=== PATIENT | female | born 1975 | race Caucasian/White ===

== ENCOUNTER 2023-02-06 08:33 | Outpatient (REF) | payer MEDICARE, SELFPAY ==
[2023-02-11 04:53] LABS: Nortriptyline 24 mcg/L (50-150)
== END 2023-02-06 08:34 | disposition home or self-care (01) ==
LOC: HO.LAB 08:33
PROVIDERS: PCP Internal Medicine; Visit Provider Clinical Nurse Specialist Psychiatric/Mental Health, Adult
DX: Z79.899 Other long term (current) drug therapy (principal)
CPT/HCPCS: 36415; 80335

== ENCOUNTER 2023-02-13 09:11 | Outpatient (REF) | payer MEDICARE, SELFPAY ==
[2023-02-18 17:49] LABS: Nortriptyline 28 mcg/L (50-150)
== END 2023-02-13 09:12 | disposition home or self-care (01) ==
LOC: HO.LABR 09:11
PROVIDERS: Visit Provider Clinical Nurse Specialist Psychiatric/Mental Health, Adult
DX: Z79.899 Other long term (current) drug therapy (principal)
CPT/HCPCS: 36415; 80335

== ENCOUNTER 2023-02-20 09:36 | Outpatient (REF) | payer MEDICARE, SELFPAY ==
[2023-02-23 15:28] LABS: Nortriptyline 37 mcg/L (50-150)
== END 2023-02-20 09:37 | disposition home or self-care (01) ==
LOC: HO.LABR 09:36
PROVIDERS: Visit Provider Clinical Nurse Specialist Psychiatric/Mental Health, Adult
DX: Z79.899 Other long term (current) drug therapy (principal)
CPT/HCPCS: 36415; 80335

== ENCOUNTER 2023-02-27 08:06 | Outpatient (REF) | payer MEDICARE, SELFPAY ==
[2023-03-02 17:24] LABS: Nortriptyline 37 mcg/L (50-150)
== END 2023-02-27 08:07 | disposition home or self-care (01) ==
LOC: HO.LAB 08:06
PROVIDERS: Visit Provider Clinical Nurse Specialist Psychiatric/Mental Health, Adult
DX: Z79.899 Other long term (current) drug therapy (principal)
CPT/HCPCS: 36415; 80335

== ENCOUNTER → 2023-06-01 09:00 | Outpatient (BNV) | payer MEDICARE, SELFPAY | PROVIDERS: PCP Internal Medicine; Visit Provider Psychiatry & Neurology Psychiatry | DX: F33.2 Major depressive disorder, recurrent severe without psychotic features (principal) | CPT/HCPCS: 90867; 90868 ==

== ENCOUNTER 2023-06-26 10:28 | Outpatient (REF) | payer MEDICARE, SELFPAY ==
[2023-06-26 12:14] LABS: Folate > 20.0 ng/mL (> or = 4.0); Vitamin B12 606 pg/mL (200-900)
[2023-06-29 18:03] LABS: Clomipramine 359 mcg/L (50-250); Clomipramine + Desmethylclom 575 mcg/L (200-600); Desmethylclomipramine 216 mcg/L (150-350)
== END 2023-06-26 10:29 | disposition home or self-care (01) ==
LOC: HO.LAB 10:28
PROVIDERS: PCP Student in an Organized Health Care Education/Training Program; Visit Provider Psychiatry & Neurology Psychiatry
DX: F33.2 Major depressive disorder, recurrent severe without psychotic features (principal); F42.9 Obsessive-compulsive disorder, unspecified; Z79.899 Other long term (current) drug therapy
CPT/HCPCS: 36415; 80335; 82607; 82746; 84443

== ENCOUNTER → 2023-07-24 11:25 | Outpatient (BNVA) | payer MEDICARE, SELFPAY | PROVIDERS: PCP Student in an Organized Health Care Education/Training Program; Visit Provider Psychiatry & Neurology Psychiatry ==

== ENCOUNTER 2023-07-26 09:00 | Outpatient (RCR) | payer MEDICARE, SELFPAY ==
--- NOTE | 2023-05-22 13:36 | W.PM.TMSCONS ---
History of Present Illness General Data Date of Service: 05/22/23 Reason for consult: tms eval referred by nurse practitioner and therapist Jesica Beltre [facility] Requesting provider: Lupe Atkinson History of Present Illness The patient is a 47-year-old female seen in evaluation accompanied by her mother. 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 She had a good response to TMS in 2017. The patient had been seeing Taryn Sanchez nurse practitioner for a number of years who has been in the process moving and has started seeing a new practitioner. 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 She has had intrusive thoughts that she would be better off denies that she would act on these thoughts but states this is close to the were she has felt. She has marked anxiety and intrusive obsessional ruminations about other people with intrusive negative thoughts that she feels guilty about and has had classic OCD intrusive unwanted sexual thoughts around others that causes guilt and despair. The patient recently had been at the [facility] at [facility] but was only able to stay for couple of days some of this appears to relate to her 's reaction and her own reaction. She again has felt increasing despair. Her current PHQ-9 is 26 she has been hoping for TMS treatment which she states had helped her significantly previously The patient has had a number of medication trials over the years. Most recently she has been on Anafranil 150 mg daily with a plan to increase and alprazolam 0.5 mg daily p.r.n. the patient had OCD symptoms starting in middle school Over the past year with worsening depression the patient has multiple medication trials these have included venlafaxine up to 150 mg which was discontinued secondary to lack of effect. She had had a prior response to Latuda which was somewhat helpful but eventually showed a lack of acts efficacy and she did take up to 80 mg day. Over the past year in addition to Effexor she had had a trial of escitalopram up to 20 mg for couple of months discontinued because of lack of efficacy. Vraylar had been ended at 1.5 mg gradually increased 3 mg again for a couple of months discontinued due to lack of efficacy and nortriptyline had been added for augmentation to 50 mg which was discontinued due to lack of efficacy and Rexulti had most recently been tried for augmentation to 1 mg which was discontinued couple of months. The patient has had a gradual downward drift over time having been able to work in the past on a much more regular basis Past Psychiatric History/Medication Trials: Patient has had past trials at the [facility] most recently at [place] that had a hard time scientology driving there. She had had intrusive symptoms that she had run someone over intrusive in her head and became more more difficult to drive she did have a trial of ECT in 2017 which was discontinued prematurely as she had had awareness during her last ECT treatment which was she believes proximally 5. And was unable to continue. 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 daily p.r.n. Allergies Allergies Allergy/AdvReac Type Severity Reaction Status Date / Time amoxicillin [AMOXICILLIN] AdvReac Intermediate HIVES Unverified 05/21/20 15:54 Mental Status Exam Mental Status Exam Patient Appearance: Well Grooomed Patient Orientation: Person, Place, Time and Situation Level of Consciousness: Awake and Appropriate Patient Behavior: Appropriate Mood Description: Depressed, Anxious, Blunted and Apprehensive Affect Description: Appropriate, Constricted and Depressed Patient Cognition Impaired: No Ability to Follow Directions: Good Speech Pattern: Clear Memory Description: Intact Hallucinations: None Delusions: Not Present Thought Process: Intact and Goal Oriented Thought Content: positive for Goal Oriented, positive for Preoccupation, positive for Suicidal Ideation and negative for Homicidal Ideation Depressive Symptoms: Increased Anxiety, Increased Irritability, Sleeping More Than Usual, Feelings of Worthlessness, Hopelessness, Feelings of Guilt, Increased Fatigue, Thoughts of /Suicide, Loss of Energy and Difficulty Concentrating Judgement: Good Judgement and Insight: Difficulty understanding her OCD thoughts are just thoughts in not wishes or desires she has asking for help she does states she can maintain her safety Assessment & Plan Assessment & Plan (1) Major depressive disorder, recurrent severe without psychotic features: Status: Acute Code(s): F33.2 - Major depressive disorder, recurrent severe without psychotic features (2) OCD (obsessive compulsive disorder): Status: Acute Code(s): F42.9 - Obsessive-compulsive disorder, unspecified Plan Discussed with patient risks benefits and alternatives. Patient has no contraindication to TMS has tolerated previously. No pacemaker cochlear implant no history of surgery above the head or neck no metallic implants no history of brain surgery no history of seizures Patient would benefit from a TMS trial she states she does not need inpatient treatment at this time was given education regarding depression and OCD discussed Brain Lock for OCD denies active suicidal intent states she can maintain her safety as an outpatient Total time managing care of this patient today _70___ minutes. Including review of records Patient educated on: diagnosis, TMS and therapeutic strategies Informed Consent: understands
--- NOTE | 2023-06-01 20:48 | HO.TMSDAILY2 ---
TMS Daily Progress Note Daily TMS Progress Note Date of Service: 05/31/23 Week #: 1 Treatment #(10-03): 1 PHQ-9 Pre-Treatment (09-30): 27 PHQ-9 Most Recent (09-30): 26 Reviewed: TMS Tech Note Reviewed Verification: I have reviewed the TMS Wellness Health Coach Note and agree with the contents. The patient remains a candidate to continue TMS treatment per protocol. Assessment and Plan (1) OCD (obsessive compulsive disorder): Status: Acute (2) Major depressive disorder, recurrent severe without psychotic features: Status: Acute Plan pt tolerated initial mapping without difficulty has significant depressive and anxiety sx denies active si Time Spent With Patient Time: Total time managing care of this patient today ____ minutes.
--- NOTE | 2023-06-01 20:54 | P.PNPS_ITS ---
TMS Daily Progress Note Daily TMS Progress Note Date of Service: 06/01/23 Week #: 1 Treatment #(10-03): 2 PHQ-9 Pre-Treatment (09-30): 27 PHQ-9 Most Recent (09-30): 26 Reviewed: TMS Tech Note Reviewed Verification: I have reviewed the TMS Substation Operator Conversion Note and agree with the contents. The patient remains a candidate to continue TMS treatment per protocol. Assessment and Plan (1) Major depressive disorder, recurrent severe without psychotic features: Status: Acute (2) OCD (obsessive compulsive disorder): Status: Acute Plan continue plan of care Time Spent With Patient Time: Total time managing care of this patient today ____ minutes.
--- NOTE | 2023-06-03 00:06 | P.PNPS_ITS ---
TMS Daily Progress Note Daily TMS Progress Note Date of Service: 06/02/23 Week #: 1 Treatment #(10-03): 3 PHQ-9 Pre-Treatment (09-30): 27 PHQ-9 Most Recent (09-30): 26 Reviewed: TMS Tech Note Reviewed Verification: I have reviewed the TMS Supervisor Billposting Note and agree with the contents. The patient remains a candidate to continue TMS treatment per protocol. Assessment and Plan (1) OCD (obsessive compulsive disorder): Status: Acute (2) Major depressive disorder, recurrent severe without psychotic features: Status: Acute Plan Some complaints of pain using Motrin continue plan of care Time Spent With Patient Time: Total time managing care of this patient today ____ minutes.
--- NOTE | 2023-06-14 22:06 | HO.TMSDAILY2 ---
TMS Daily Progress Note Daily TMS Progress Note Date of Service: 06/13/23 Week #: 2 Treatment #(10-03): 9 PHQ-9 Pre-Treatment (09-30): 27 PHQ-9 Most Recent (09-30): 26 Reviewed: TMS Tech Note Reviewed Verification: I have reviewed the TMS Diving Board Assembler Note and agree with the contents. The patient remains a candidate to continue TMS treatment per protocol. Assessment and Plan (1) OCD (obsessive compulsive disorder): Status: Acute (2) Major depressive disorder, recurrent severe without psychotic features: Status: Acute Plan cont tx plan Time Spent With Patient Time: Total time managing care of this patient today ____ minutes.
--- NOTE | 2023-06-14 22:08 | HO.TMSDAILY2 ---
TMS Daily Progress Note Daily TMS Progress Note Date of Service: 06/14/23 Week #: 2 Treatment #(10-03): 10 PHQ-9 Pre-Treatment (09-30): 27 PHQ-9 Most Recent (09-30): 26 Reviewed: TMS Tech Note Reviewed Verification: I have reviewed the TMS Supervisor Lending Activities Note and agree with the contents. The patient remains a candidate to continue TMS treatment per protocol. Assessment and Plan (1) Major depressive disorder, recurrent severe without psychotic features: Status: Acute (2) OCD (obsessive compulsive disorder): Status: Acute Plan tolerating tx changes noted Time Spent With Patient Time: Total time managing care of this patient today ____ minutes.
--- NOTE | 2023-06-15 21:56 | HO.TMSDAILY2 ---
TMS Daily Progress Note Daily TMS Progress Note Date of Service: 06/15/23 Week #: 3 Treatment #(10-03): 11 PHQ-9 Pre-Treatment (09-30): 27 PHQ-9 Most Recent (09-30): 26 Reviewed: TMS Tech Note Reviewed Verification: I have reviewed the TMS Hard Candy Batch Mixer Note and agree with the contents. The patient remains a candidate to continue TMS treatment per protocol. Assessment and Plan (1) OCD (obsessive compulsive disorder): Status: Acute (2) Major depressive disorder, recurrent severe without psychotic features: Status: Acute Plan tolerating tx improved fx Time Spent With Patient Time: Total time managing care of this patient today ____ minutes.
--- NOTE | 2023-06-16 23:54 | HO.TMSDAILY2 ---
TMS Daily Progress Note Daily TMS Progress Note Date of Service: 06/18/23 Week #: 3 Treatment #(10-03): 12 PHQ-9 Pre-Treatment (09-30): 27 PHQ-9 Most Recent (09-30): 26 Reviewed: TMS Tech Note Reviewed Verification: I have reviewed the TMS Sales And Catering Coordinator Note and agree with the contents. The patient remains a candidate to continue TMS treatment per protocol. Assessment and Plan (1) OCD (obsessive compulsive disorder): Status: Acute (2) Major depressive disorder, recurrent severe without psychotic features: Status: Acute Plan Patient reports improved functioning in stress tolerance Time Spent With Patient Time: Total time managing care of this patient today ____ minutes.
--- NOTE | 2023-06-19 21:42 | HO.TMSDAILY2 ---
TMS Daily Progress Note Daily TMS Progress Note Date of Service: 06/19/23 Week #: 3 Treatment #(10-03): 13 PHQ-9 Pre-Treatment (09-30): 27 PHQ-9 Most Recent (09-30): 26 Reviewed: TMS Tech Note Reviewed Verification: I have reviewed the TMS Data Entry Coordinator Note and agree with the contents. The patient remains a candidate to continue TMS treatment per protocol. Assessment and Plan (1) OCD (obsessive compulsive disorder): Status: Acute (2) Major depressive disorder, recurrent severe without psychotic features: Status: Acute Plan cont plan of care Time Spent With Patient Time: Total time managing care of this patient today ____ minutes.
--- NOTE | 2023-06-22 09:43 | HO.TMSDAILY2 ---
TMS Daily Progress Note Daily TMS Progress Note Date of Service: 06/19/23 Week #: 3 Treatment #(10-03): 14 PHQ-9 Pre-Treatment (09-30): 27 PHQ-9 Most Recent (09-30): 26 Reviewed: TMS Tech Note Reviewed Verification: I have reviewed the TMS Dynamic Etching Processor Note and agree with the contents. The patient remains a candidate to continue TMS treatment per protocol. Assessment and Plan (1) OCD (obsessive compulsive disorder): Status: Acute (2) Major depressive disorder, recurrent severe without psychotic features: Status: Acute Plan CONTINUE TX PLAN Time Spent With Patient Time: Total time managing care of this patient today ____ minutes.
--- NOTE | 2023-06-22 09:45 | HO.TMSDAILY2 ---
TMS Daily Progress Note Daily TMS Progress Note Date of Service: 06/21/23 Week #: 3 Treatment #(10-03): 15 PHQ-9 Pre-Treatment (09-30): 27 PHQ-9 Most Recent (09-30): 26 Reviewed: TMS Tech Note Reviewed Verification: I have reviewed the TMS Director Of Business Continuity Note and agree with the contents. The patient remains a candidate to continue TMS treatment per protocol. Assessment and Plan (1) OCD (obsessive compulsive disorder): Status: Acute (2) Major depressive disorder, recurrent severe without psychotic features: Status: Acute Plan CONTINUE PLAN OF CARE Time Spent With Patient Time: Total time managing care of this patient today ____ minutes.
--- NOTE | 2023-06-22 09:54 | P.PNPS_ITS ---
TMS Daily Progress Note Daily TMS Progress Note Date of Service: 06/22/23 Week #: 4 Treatment #(10-03): 16 PHQ-9 Pre-Treatment (09-30): 27 PHQ-9 Most Recent (09-30): 26 Reviewed: TMS Tech Note Reviewed Verification: I have reviewed the TMS Mailing Manager Note and agree with the contents. The patient remains a candidate to continue TMS treatment per protocol. Assessment and Plan (1) OCD (obsessive compulsive disorder): Status: Acute (2) Major depressive disorder, recurrent severe without psychotic features: Status: Acute Plan TOLERATING TX CLEARLY IMPROVED Time Spent With Patient Time: Total time managing care of this patient today ____ minutes.
--- NOTE | 2023-07-03 15:54 | P.PNPS_ITS ---
TMS Daily Progress Note Daily TMS Progress Note Date of Service: 07/03/23 Week #: 4 Treatment #(10-03): 17 PHQ-9 Pre-Treatment (09-30): 27 PHQ-9 Most Recent (09-30): 26 Reviewed: TMS Tech Note Reviewed Verification: I have reviewed the TMS Ground Source Heat Pump Technician Note and agree with the contents. The patient remains a candidate to continue TMS treatment per protocol. Assessment and Plan (1) Major depressive disorder, recurrent severe without psychotic features: Status: Acute (2) OCD (obsessive compulsive disorder): Status: Acute Plan pt generally noting improvement Time Spent With Patient Time: Total time managing care of this patient today ____ minutes.
--- NOTE | 2023-07-03 16:03 | HO.TMSDAILY2 ---
TMS Daily Progress Note Daily TMS Progress Note Date of Service: 06/26/23 Week #: 4 Treatment #(10-03): 18 PHQ-9 Pre-Treatment (09-30): 27 PHQ-9 Most Recent (09-30): 26 Reviewed: TMS Tech Note Reviewed Verification: I have reviewed the TMS Order Puller Note and agree with the contents. The patient remains a candidate to continue TMS treatment per protocol. Assessment and Plan (1) OCD (obsessive compulsive disorder): Status: Acute (2) Major depressive disorder, recurrent severe without psychotic features: Status: Acute Plan ?pt fx improved still with intrusive ocd Time Spent With Patient Time: Total time managing care of this patient today ____ minutes.
--- NOTE | 2023-07-03 16:09 | P.PNPS_ITS ---
TMS Daily Progress Note Daily TMS Progress Note Date of Service: 06/27/23 Week #: 4 Treatment #(10-03): 19 PHQ-9 Pre-Treatment (09-30): 27 PHQ-9 Most Recent (09-30): 26 Reviewed: TMS Tech Note Reviewed Verification: I have reviewed the TMS Draw Bench Operator Helper Note and agree with the contents. The patient remains a candidate to continue TMS treatment per protocol. Assessment and Plan (1) OCD (obsessive compulsive disorder): Status: Acute (2) Major depressive disorder, recurrent severe without psychotic features: Status: Acute Plan cont plan of care Time Spent With Patient Time: Total time managing care of this patient today ____ minutes.
--- NOTE | 2023-07-03 16:16 | HO.TMSDAILY2 ---
TMS Daily Progress Note Daily TMS Progress Note Date of Service: 06/28/23 Week #: 4 Treatment #(10-03): 20 PHQ-9 Pre-Treatment (09-30): 27 PHQ-9 Most Recent (09-30): 26 Reviewed: TMS Tech Note Reviewed Verification: I have reviewed the TMS Patient Admitting Representative Note and agree with the contents. The patient remains a candidate to continue TMS treatment per protocol. Assessment and Plan (1) OCD (obsessive compulsive disorder): Status: Acute (2) Major depressive disorder, recurrent severe without psychotic features: Status: Acute Plan discussed with pt progress her ocd tx support groups and medication and its relation to tms pt generally feeling and fx better Time Spent With Patient Time: Total time managing care of this patient today ____ minutes.
--- NOTE | 2023-07-03 16:21 | HO.TMSDAILY2 ---
TMS Daily Progress Note Daily TMS Progress Note Date of Service: 06/30/23 Week #: 5 Treatment #(10-03): 21 PHQ-9 Pre-Treatment (09-30): 27 PHQ-9 Most Recent (09-30): 26 Reviewed: TMS Tech Note Reviewed Verification: I have reviewed the TMS Hand Frame Surgical Elastic Knitter Note and agree with the contents. The patient remains a candidate to continue TMS treatment per protocol. Assessment and Plan (1) OCD (obsessive compulsive disorder): Status: Acute (2) Major depressive disorder, recurrent severe without psychotic features: Status: Acute Plan pt generally feeling better ocd sx persist Time Spent With Patient Time: Total time managing care of this patient today ____ minutes.
--- NOTE | 2023-07-03 16:26 | P.PNPS_ITS ---
TMS Daily Progress Note Daily TMS Progress Note Date of Service: 07/03/23 Week #: 5 Treatment #(10-03): 22 PHQ-9 Pre-Treatment (09-30): 27 PHQ-9 Most Recent (09-30): 15 Reviewed: TMS Tech Note Reviewed Verification: I have reviewed the TMS Arc Welder Apprentice Note and agree with the contents. The patient remains a candidate to continue TMS treatment per protocol. Assessment and Plan Time Spent With Patient Time: Total time managing care of this patient today ____ minutes.
--- NOTE | 2023-09-19 19:38 | HO.TMSDAILY2 ---
TMS Daily Progress Note Daily TMS Progress Note Date of Service: 06/30/23 Week #: 5 Treatment #(-30): 21 PHQ-9 Pre-Treatment (-): 27 PHQ-9 Most Recent (09-30): 17 EDWARD-7 Pre-Treatment (0-21): 21 EDWARD-7 Most Recent (0-21): 19 Reviewed: TMS Tech Note Reviewed Verification: I have reviewed the TMS Roll Forming Machine Set Up Mechanic Note and agree with the contents. The patient remains a candidate to continue TMS treatment per protocol.
--- NOTE | 2023-09-19 19:50 | P.PNPS_ITS ---
TMS Daily Progress Note Daily TMS Progress Note Date of Service: 07/03/23 Week #: 5 Treatment #(-): 22 PHQ-9 Pre-Treatment (1-): 27 PHQ-9 Most Recent (09-30): 15 EDWARD-7 Pre-Treatment (0-21): 21 EDWARD-7 Most Recent (0-21): 21 Reviewed: TMS Tech Note Reviewed Verification: I have reviewed the TMS Industrial Engineering Intern Note and agree with the contents. The patient remains a candidate to continue TMS treatment per protocol.
--- NOTE | 2023-10-08 18:38 | P.PNPS_ITS ---
TMS Daily Progress Note Daily TMS Progress Note Date of Service: 07/04/23 Week #: 5 Treatment #(-30): 23 PHQ-9 Pre-Treatment (1-): 27 PHQ-9 Most Recent (09-30): 15 EDWARD-7 Pre-Treatment (0-21): 21 EDWARD-7 Most Recent (0-21): 21 Reviewed: TMS Tech Note Reviewed Verification: I have reviewed the TMS Print Traffic Manager Note and agree with the contents. The patient remains a candidate to continue TMS treatment per protocol.
--- NOTE | 2023-10-08 18:39 | HO.TMSDAILY2 ---
TMS Daily Progress Note Daily TMS Progress Note Date of Service: 07/05/23 Week #: 5 Treatment #(-30): 24 PHQ-9 Pre-Treatment (1-): 27 PHQ-9 Most Recent (09-30): 15 EDWARD-7 Pre-Treatment (0-21): 21 EDWARD-7 Most Recent (0-21): 21 Reviewed: TMS Tech Note Reviewed Verification: I have reviewed the TMS Fish Hatchery Manager Note and agree with the contents. The patient remains a candidate to continue TMS treatment per protocol. Assessment and Plan (1) Major depressive disorder, recurrent severe without psychotic features: Status: Acute (2) OCD (obsessive compulsive disorder): Status: Acute Plan intrusive thoughts continue
--- NOTE | 2023-10-08 18:43 | HO.TMSDAILY2 ---
TMS Daily Progress Note Daily TMS Progress Note Date of Service: 07/06/23 Week #: 5 Treatment #(-30): 25 PHQ-9 Pre-Treatment (1-): 27 PHQ-9 Most Recent (09-30): 15 EDWARD-7 Pre-Treatment (0-21): 21 EDWARD-7 Most Recent (0-21): 21 Reviewed: TMS Tech Note Reviewed Verification: I have reviewed the TMS Cut Out Press Operator Note and agree with the contents. The patient remains a candidate to continue TMS treatment per protocol. Assessment and Plan (1) Major depressive disorder, recurrent severe without psychotic features: Status: Acute (2) OCD (obsessive compulsive disorder): Status: Acute Plan still with intrusive thoughts
--- NOTE | 2023-10-08 18:47 | HO.TMSDAILY2 ---
TMS Daily Progress Note Daily TMS Progress Note Date of Service: 07/07/23 Week #: 6 Treatment #(-30): 26 PHQ-9 Pre-Treatment (1-): 27 PHQ-9 Most Recent (09-30): 15 EDWARD-7 Pre-Treatment (0-21): 21 EDWARD-7 Most Recent (0-21): 21 Reviewed: TMS Tech Note Reviewed Verification: I have reviewed the TMS Web Editor Note and agree with the contents. The patient remains a candidate to continue TMS treatment per protocol. Assessment and Plan (1) Major depressive disorder, recurrent severe without psychotic features: Status: Acute (2) OCD (obsessive compulsive disorder): Status: Acute Plan improved ocd
--- NOTE | 2023-10-08 18:49 | HO.TMSDAILY2 ---
TMS Daily Progress Note Daily TMS Progress Note Date of Service: 07/10/23 Week #: 6 Treatment #(-30): 27 PHQ-9 Pre-Treatment (1-): 28 PHQ-9 Most Recent (09-30): 10 EDWARD-7 Pre-Treatment (0-21): 21 EDWARD-7 Most Recent (0-21): 21 Reviewed: TMS Tech Note Reviewed Verification: I have reviewed the TMS Manager Licensing Note and agree with the contents. The patient remains a candidate to continue TMS treatment per protocol. Assessment and Plan (1) Major depressive disorder, recurrent severe without psychotic features: Status: Acute (2) OCD (obsessive compulsive disorder): Status: Acute Plan improving mood
--- NOTE | 2023-10-08 18:52 | P.PNPS_ITS ---
TMS Daily Progress Note Daily TMS Progress Note Date of Service: 07/11/23 Week #: 6 Treatment #(-30): 29 PHQ-9 Pre-Treatment (-): 28 PHQ-9 Most Recent (09-30): 10 EDWARD-7 Pre-Treatment (0-21): 21 EDWARD-7 Most Recent (0-21): 21 Reviewed: TMS Tech Note Reviewed Verification: I have reviewed the TMS Chucking Machine Operator Note and agree with the contents. The patient remains a candidate to continue TMS treatment per protocol. Assessment and Plan (1) Major depressive disorder, recurrent severe without psychotic features: Status: Acute Plan continue tx plan
--- NOTE | 2023-10-08 18:55 | HO.TMSDAILY2 ---
TMS Daily Progress Note Daily TMS Progress Note Date of Service: 07/12/23 Week #: 6 Treatment #(-30): 30 PHQ-9 Pre-Treatment (-): 28 PHQ-9 Most Recent (09-30): 10 EDWARD-7 Pre-Treatment (0-21): 21 EDWARD-7 Most Recent (0-21): 21 Reviewed: TMS Tech Note Reviewed Verification: I have reviewed the TMS Extractor Tender Raw Stock Note and agree with the contents. The patient remains a candidate to continue TMS treatment per protocol. Assessment and Plan (1) Major depressive disorder, recurrent severe without psychotic features: Status: Acute Plan continue tx plan ocd sx cont
--- NOTE | 2023-10-08 18:58 | P.PNPS_ITS ---
TMS Daily Progress Note Daily TMS Progress Note Date of Service: 07/13/23 Week #: 7 Treatment #(-30): 31 PHQ-9 Pre-Treatment (1-): 28 PHQ-9 Most Recent (09-30): 10 EDWARD-7 Pre-Treatment (0-21): 21 EDWARD-7 Most Recent (0-21): 21 Reviewed: TMS Tech Note Reviewed Verification: I have reviewed the TMS Training And Development Head Note and agree with the contents. The patient remains a candidate to continue TMS treatment per protocol.
--- NOTE | 2023-10-08 19:00 | P.PNPS_ITS ---
TMS Daily Progress Note Daily TMS Progress Note Date of Service: 07/17/23 Week #: 7 Treatment #(-30): 32 PHQ-9 Pre-Treatment (-): 28 PHQ-9 Most Recent (09-30): 9 EDWARD-7 Pre-Treatment (0-21): 21 EDWARD-7 Most Recent (0-21): 21 Reviewed: TMS Tech Note Reviewed Verification: I have reviewed the TMS Medical And Health Services Manager Note and agree with the contents. The patient remains a candidate to continue TMS treatment per protocol. Assessment and Plan (1) Major depressive disorder, recurrent severe without psychotic features: Status: Acute (2) OCD (obsessive compulsive disorder): Status: Acute Plan much improved well tolerated
--- NOTE | 2023-10-08 19:04 | HO.TMSDAILY2 ---
TMS Daily Progress Note Daily TMS Progress Note Date of Service: 07/19/23 Week #: 7 Treatment #(-30): 33 PHQ-9 Pre-Treatment (-): 28 PHQ-9 Most Recent (09-30): 9 EDWARD-7 Pre-Treatment (0-21): 21 EDWARD-7 Most Recent (0-21): 21 Reviewed: TMS Tech Note Reviewed Verification: I have reviewed the TMS Paper Cup Machine Tender Note and agree with the contents. The patient remains a candidate to continue TMS treatment per protocol. Assessment and Plan (1) Major depressive disorder, recurrent severe without psychotic features: Status: Acute (2) OCD (obsessive compulsive disorder): Status: Acute Plan much improved well tolerated continue taper
--- NOTE | 2023-10-08 19:06 | P.PNPS_ITS ---
TMS Daily Progress Note Daily TMS Progress Note Date of Service: 07/21/23 Week #: 7 Treatment #(-30): 34 PHQ-9 Pre-Treatment (1-): 28 PHQ-9 Most Recent (09-30): 9 EDWARD-7 Pre-Treatment (0-21): 21 EDWARD-7 Most Recent (0-21): 21 Reviewed: TMS Tech Note Reviewed Verification: I have reviewed the TMS Assistant Elementary Teacher Note and agree with the contents. The patient remains a candidate to continue TMS treatment per protocol.
--- NOTE | 2023-10-08 19:08 | HO.TMSDAILY2 ---
TMS Daily Progress Note Daily TMS Progress Note Date of Service: 10/08/23 Week #: 8 Treatment #(-): 35 PHQ-9 Pre-Treatment (-): 28 PHQ-9 Most Recent (09-30): 9 EDWARD-7 Pre-Treatment (0-21): 21 EDWARD-7 Most Recent (0-21): 21 Reviewed: TMS Tech Note Reviewed Verification: I have reviewed the TMS Retirement Sales Consultant Note and agree with the contents. The patient remains a candidate to continue TMS treatment per protocol.
--- NOTE | 2023-10-08 19:09 | P.PNPS_ITS ---
TMS Daily Progress Note Daily TMS Progress Note Date of Service: 07/26/23 Week #: 8 Treatment #(-): 36 PHQ-9 Pre-Treatment (-): 28 PHQ-9 Most Recent (09-30): 9 EDWARD-7 Pre-Treatment (0-21): 21 EDWARD-7 Most Recent (0-21): 21 Reviewed: TMS Tech Note Reviewed Verification: I have reviewed the TMS Leadership Intern Note and agree with the contents. The patient remains a candidate to continue TMS treatment per protocol. Assessment and Plan (1) Major depressive disorder, recurrent severe without psychotic features: Status: Acute (2) OCD (obsessive compulsive disorder): Status: Acute Plan depressio much improved ocd anxiety continues less catastrophic better able to manage tolerated tms well
== END 2023-07-27 11:39 | disposition home or self-care (01) ==
LOC: HO.PTMS 09:00
PROVIDERS: PCP Internal Medicine; Visit Provider Psychiatry & Neurology Psychiatry
DX: F33.2 Major depressive disorder, recurrent severe without psychotic features (principal); F42.9 Obsessive-compulsive disorder, unspecified
CPT/HCPCS: 90867; 90868; 99205

== ENCOUNTER → 2023-07-26 09:00 | Outpatient (BNV) | payer MEDICARE, SELFPAY | PROVIDERS: PCP Internal Medicine; Visit Provider Psychiatry & Neurology Psychiatry | DX: F33.2 Major depressive disorder, recurrent severe without psychotic features (principal) | CPT/HCPCS: 90868 ==

== ENCOUNTER 2023-11-29 04:52 | Emergency (ER) | payer MEDICARE, SELFPAY ==
[2023-11-29 04:57] VITALS: BP 131/77; PULSE 116; RESP 18; TEMP 36.8; O2SAT 99; BMI 25.1
[2023-11-29 05:32] LABS: MANUAL DIFF FLAG NO
[2023-11-29 05:34] LABS: COVID-19 Test Negative (Negative); IDNOW Serial# 152EDE1D
[2023-11-29 05:37] LABS: Basophils Percent Auto 0.2 % (0-2); Eosinophils Absolute Auto 0.1 X10*3/uL (0.0-0.4); Eosinophils Percent Auto 1.2 % (0-4); Hematocrit 40.1 % (37.0-47.0); Hemoglobin 14.3 g/dl (12.0-16.0); Imm Gran Abs Auto 0.03 X10*3/uL (0.00-0.03); Imm Gran Pct Auto 0.3 % (0.0-0.4); Lymphocytes Absolute Auto 1.6 X10*3/uL (1.2-4.9); Lymphocytes Percent Auto 17.3 % (20-40); Mean Corpuscular HGB Conc 35.7 g/dl (31.0-35.0); Mean Corpuscular Hemoglobin 33.4 pg (27.0-33.0); Mean Corpuscular Volume 93.7 fL (80.0-98.0); Mean Platelet Volume 9.2 fL (9.4-12.3); Monocytes Absolute Auto 1.1 X10*3/uL (0.1-1.2); Monocytes Percent Auto 11.8 % (2-11); Neutrophils Absolute Auto 6.4 x10*3/uL (2.0-8.3); Neutrophils Percent Auto 69.2 % (45-73); Platelet Count 382 X10*3/uL (160-400); Red Blood Count 4.28 X10*6/uL (4.20-5.50); Red Cell Distribution Width 12.3 % (11.0-16.0); White Blood Count 9.3 X10*3/uL (4.8-10.8)
[2023-11-29 05:41] LABS: IDNOW Serial# 08D9AD1C; Influenza A Negative (Negative); Influenza B2 Negative (Negative)
[2023-11-29 05:54] LABS: Alanine Aminotransferase 16 U/L (0-31); Albumin Level 4.1 g/dL (3.5-5.0); Alkaline Phosphatase 70 U/L (39-117); Anion Gap 12 (12-20); Aspartate Amino Transferase 13 U/L (5-31); Bilirubin Direct 0.3 mg/dL (0.0-0.5); Bilirubin Total 0.7 mg/dL (0.0-1.0); Blood Urea Nitrogen 11 mg/dL (9-16); Calcium 8.9 mg/dL (8.4-10.2); Carbon Dioxide 23 mmol/L (22-29); Chloride 104 mmol/L (96-108); Creatinine Clr Calc Pharmacy 97.5; Estimated Glomerular Filt Rate > 60; Glucose Random 124 mg/dL (60-115); Lipase 16 U/L (8-78); Potassium 3.2 mmol/L (3.3-5.1); Sodium 136 mmol/L (135-145); Total Protein 7.5 g/dL (6.5-8.0)
[2023-11-29 05:56] LABS: HCG Quantitative < 2 mIU/mL
== END 2023-11-29 06:32 | disposition left against medical advice (07) ==
PROVIDERS: Emergency Provider Emergency Medicine
DX: R11.2 Nausea with vomiting, unspecified (principal); R19.7 Diarrhea, unspecified; R10.30 Lower abdominal pain, unspecified; Z11.52 Encounter for screening for COVID-19; Z20.828 Contact with and (suspected) exposure to other viral communicable diseases
CPT/HCPCS: 36415; 80053; 82248; 83690; 84702; 85025; 87502; 87635; 99281; 99283

== ENCOUNTER 2023-11-30 13:46 | Emergency (ER) | payer MEDICARE, SELFPAY ==
[2023-11-30 14:05] VITALS: BP 120/64; PULSE 127; RESP 18; TEMP 36.7; O2SAT 100; BMI 25.3
--- NOTE | 2023-11-30 14:05 | ED_ITS ---
HPI - General Adult General Chief complaint: Nausea/Vomiting/Diarrhea Stated complaint: Dehydration Related Data Allergies Allergy/AdvReac Type Severity Reaction Status Date / Time amoxicillin [AMOXICILLIN] AdvReac Intermediate HIVES Verified 11/30/23 14:05 [facility] Past Medical History Medical History (Updated 12/01/23 @ 16:14 by HODA Munoz) OCD (obsessive compulsive disorder) Major depressive disorder, recurrent severe without psychotic features Social History Social History Advance Directives: No Advance Directives Information Provided: No Physical Exam ED Vital Signs: BMI result Body Mass Index 25.3 Course Course Course Narrative: RME:?48 yo female hx of OCD and MDD here for eval of N/V/D x5 days. only able to tolerate gingerale and gatorade. no bad foods. has had all meals with who is asymptomatic. no recent travel. PCP noted concern for norovirus and advised patient to come to ED. States she came at 0500 yesterday morning however left due to the wait. no recent abx. GI panel, viral serology, and labs ordered. Full HPI, ROS and PE to be performed by the primary ED provider. Reevaluation(s) Reevaluation #1: Patient left the emergency department without completing treatment. Medical Decision Making Lab Data 11/30/23 15:08 11/30/23 15:08 Labs: Lab Results 11/30/23 Range/Units 15:08 WBC 12.5 H (4.8-10.8) X10*3/uL RBC 4.09 L (4.20-5.50) X10*6/uL Hgb 13.7 (12.0-16.0) g/dl Hct 38.5 (37.0-47.0) % MCV 94.1 (80.0-98.0) fL MCH 33.5 H (27.0-33.0) pg MCHC 35.6 H (31.0-35.0) g/dl RDW 12.4 (11.0-16.0) % Plt Count 371 (160-400) X10*3/uL MPV 8.9 L (9.4-12.3) fL Immature Gran % (Auto) 1.0 H (0.0-0.4) % Neut % (Auto) 67.7 (45-73) % Lymph % (Auto) 18.4 L (20-40) % [place] % (Auto) 10.6 (2-11) % Eos % (Auto) 2.1 (0-4) % Baso % (Auto) 0.2 (0-2) % Lymph # (Auto) 2.3 (1.2-4.9) X10*3/uL [place] # (Auto) 1.3 H (0.1-1.2) X10*3/uL Eos # (Auto) 0.3 (0.0-0.4) X10*3/uL Baso # (Auto) 0.0 (0.0-0.2) X10*3/uL Abs Immat Gran (auto) 0.12 H (0.00-0.03) X10*3/uL Absolute Neuts (auto) 8.5 H (2.0-8.3) x10*3/uL Absolute Nucleated RBC 0.000 (0.0-0.012) X10*3/uL Nucleated RBC % (auto) 0.0 (0.0-0.2) /100WBC Sodium 137 (135-145) mmol/L Potassium 3.0 L (3.3-5.1) mmol/L Chloride 102 (96-108) mmol/L Carbon Dioxide 27 (22-29) mmol/L Anion Gap 11 L (12-20) BUN 13 (9-16) mg/dL Creatinine 0.77 (0.5-1.4) mg/dL Estim Creat Clear Calc 98.8 Estimated GFR > 60 Random Glucose 99 (60-115) mg/dL Calcium 8.9 (8.4-10.2) mg/dL Magnesium 1.9 (1.6-2.6) mg/dL Total Bilirubin 0.8 (0.0-1.0) mg/dL AST 14 (5-31) U/L ALT 19 (0-31) U/L Alkaline Phosphatase 72 (39-117) U/L Total Protein 7.6 (6.5-8.0) g/dL Albumin 4.1 (3.5-5.0) g/dL Lipase 31 (8-78) U/L Influenza Type A (PCR) NEGATIVE (Negative) Influenza Type B (PCR) NEGATIVE (Negative) RSV RNA Qual (PCR) NEGATIVE (Negative) SARS-CoV-2 RNA (RT-PCR) NEGATIVE (Negative) Discharge Plan Discharge Clinical Impression: Nausea & vomiting Patient Disposition: Left W/O Completing Treatment Discharge Date/Time: 11/30/23 17:55
[2023-11-30 15:14] LABS: MANUAL DIFF FLAG NO
[2023-11-30 15:17] LABS: Basophils Percent Auto 0.2 % (0-2); Eosinophils Absolute Auto 0.3 X10*3/uL (0.0-0.4); Eosinophils Percent Auto 2.1 % (0-4); Hematocrit 38.5 % (37.0-47.0); Hemoglobin 13.7 g/dl (12.0-16.0); Imm Gran Abs Auto 0.12 X10*3/uL (0.00-0.03); Lymphocytes Absolute Auto 2.3 X10*3/uL (1.2-4.9); Lymphocytes Percent Auto 18.4 % (20-40); Mean Corpuscular HGB Conc 35.6 g/dl (31.0-35.0); Mean Corpuscular Hemoglobin 33.5 pg (27.0-33.0); Mean Corpuscular Volume 94.1 fL (80.0-98.0); Mean Platelet Volume 8.9 fL (9.4-12.3); Monocytes Absolute Auto 1.3 X10*3/uL (0.1-1.2); Monocytes Percent Auto 10.6 % (2-11); Neutrophils Absolute Auto 8.5 x10*3/uL (2.0-8.3); Neutrophils Percent Auto 67.7 % (45-73); Platelet Count 371 X10*3/uL (160-400); Red Blood Count 4.09 X10*6/uL (4.20-5.50); Red Cell Distribution Width 12.4 % (11.0-16.0); White Blood Count 12.5 X10*3/uL (4.8-10.8)
[2023-11-30 15:33] LABS: Alanine Aminotransferase 19 U/L (0-31); Albumin Level 4.1 g/dL (3.5-5.0); Alkaline Phosphatase 72 U/L (39-117); Anion Gap 11 (12-20); Aspartate Amino Transferase 14 U/L (5-31); Bilirubin Total 0.8 mg/dL (0.0-1.0); Blood Urea Nitrogen 13 mg/dL (9-16); Calcium 8.9 mg/dL (8.4-10.2); Carbon Dioxide 27 mmol/L (22-29); Chloride 102 mmol/L (96-108); Creatinine Clr Calc Pharmacy 98.8; Estimated Glomerular Filt Rate > 60; Glucose Random 99 mg/dL (60-115); Lipase 31 U/L (8-78); Magnesium 1.9 mg/dL (1.6-2.6); Sodium 137 mmol/L (135-145); Total Protein 7.6 g/dL (6.5-8.0)
[2023-11-30 15:59] LABS: Influenza A PCR NEGATIVE (Negative); Influenza B PCR NEGATIVE (Negative); Resp Syncy Virus RNA Qual PCR NEGATIVE (Negative); SARS COV2 PCR INHOUSE NEGATIVE (Negative)
--- NOTE | 2023-11-30 16:04 | ECG_ITS ---
Test Reason : HYPOKALEMIA Blood Pressure : / mmHG Vent. Rate : 114 BPM Atrial Rate : 114 BPM P-R Int : 136 ms QRS Dur : 092 ms QT Int : 326 ms P-R-T Axes : 068 031 063 degrees QTc Int : 449 ms Sinus tachycardia Incomplete right bundle branch block Septal infarct , age undetermined Abnormal ECG No previous ECGs available Referred By: Noemy Tran Electronically Signed By:Renny Stuart
== END 2023-11-30 17:55 | disposition left against medical advice (07) ==
PROVIDERS: Physician Assistant Medical; Emergency Provider Emergency Medicine; PCP Student in an Organized Health Care Education/Training Program
DX: R11.2 Nausea with vomiting, unspecified (principal); Z11.52 Encounter for screening for COVID-19; Z20.828 Contact with and (suspected) exposure to other viral communicable diseases
CPT/HCPCS: 0241U; 80053; 83690; 83735; 85025; 93005; 99283

== ENCOUNTER → 2023-11-30 16:04 | Outpatient (BNV) | payer MEDICARE, SELFPAY | PROVIDERS: Emergency Provider Emergency Medicine; PCP Student in an Organized Health Care Education/Training Program; Visit Provider Internal Medicine Cardiovascular Disease | DX: R00.0 Tachycardia, unspecified (principal); I45.10 Unspecified right bundle-branch block | CPT/HCPCS: 93010 ==

== ENCOUNTER 2023-12-04 09:24 | Outpatient (REF) | payer MEDICARE, SELFPAY ==
[2023-12-07 19:48] LABS: Clomipramine 108 mcg/L (50-250); Clomipramine + Desmethylclom 124 mcg/L (200-600); Desmethylclomipramine 16 mcg/L (150-350)
== END 2023-12-04 09:25 | disposition home or self-care (01) ==
LOC: HO.LAB 09:24
PROVIDERS: PCP Student in an Organized Health Care Education/Training Program; Visit Provider Clinical Nurse Specialist Psychiatric/Mental Health
DX: F33.1 Major depressive disorder, recurrent, moderate (principal); Z79.899 Other long term (current) drug therapy
CPT/HCPCS: 36415; 80335

== ENCOUNTER → 2023-12-12 13:06 | Outpatient (BNVA) | payer SELFPAY | PROVIDERS: PCP Student in an Organized Health Care Education/Training Program; Visit Provider Physician Assistant Medical ==

== ENCOUNTER 2024-07-20 07:01 | Outpatient (REF) | payer MEDICARE, SELFPAY ==
[2024-07-20 08:16] LABS: Alanine Aminotransferase 17 U/L (0-31); Albumin Level 3.8 g/dL (3.5-5.0); Alkaline Phosphatase 78 U/L (39-117); Anion Gap 11 (12-20); Aspartate Amino Transferase 16 U/L (5-31); Bilirubin Total 0.5 mg/dL (0.0-1.0); Blood Urea Nitrogen 14 mg/dL (9-16); Calcium 8.5 mg/dL (8.4-10.2); Carbon Dioxide 26 mmol/L (22-29); Chloride 107 mmol/L (96-108); Estimated Glomerular Filt Rate > 60; Glucose Random 90 mg/dL (60-115); Sodium 140 mmol/L (135-145); Total Protein 6.8 g/dL (6.5-8.0)
[2024-07-23 22:28] LABS: Clomipramine 155 mcg/L (50-250); Clomipramine + Desmethylclom 217 mcg/L (200-600); Desmethylclomipramine 62 mcg/L (150-350)
== END 2024-07-20 07:02 | disposition home or self-care (01) ==
LOC: HO.LAB 07:01
PROVIDERS: PCP Student in an Organized Health Care Education/Training Program; Visit Provider Clinical Nurse Specialist Psychiatric/Mental Health
DX: F33.1 Major depressive disorder, recurrent, moderate (principal); Z51.81 Encounter for therapeutic drug level monitoring
CPT/HCPCS: 36415; 80053; 80335

== ENCOUNTER 2025-04-15 06:35 | Outpatient (REF) | payer MEDICARE, SELFPAY ==
[2025-04-19 16:33] LABS: Clomipramine + Desmethylclom 318 mcg/L (200-600)
== END 2025-04-15 06:36 | disposition home or self-care (01) ==
LOC: HO.LAB 06:35
PROVIDERS: PCP Student in an Organized Health Care Education/Training Program; Visit Provider Clinical Nurse Specialist Psychiatric/Mental Health
DX: F33.1 Major depressive disorder, recurrent, moderate (principal)
CPT/HCPCS: 36415; 80335